=== PATIENT | male | born 1970 | race Caucasian/White ===

== ENCOUNTER → 2025-01-20 | Day surgery (SDC) | payer BC ==
[~2025-01-20] MED LIST: AMLODIPINE BESYL5 MG PO; GLUCAGON FOR INJ 1 MG VIAL ONE; LIPITOR10 MG PO; METOCLOPRAMIDE HCL 10 MG/2ML VIAL ONE; MICARDIS40 MG PO; MIDAZOLAM HCL 2 MG/2 ML VIAL ONE; PROPOFOL IV EMULSION 10 MG/ML 20 ML VIAL ONE; PROPOFOL IV EMULSION 50 ML IV ONE
[2025-01-20] MEDS: LACTATED RINGER'S 1,000 ML ONE (11:45)
[2025-01-20 13:22] VITALS: TEMP 98.8
[2025-01-20 13:50] VITALS: BP 127/83; PULSE 80; RESP 16; O2SAT 100
== END | disposition home or self-care (01) ==
LOC: OR 11:21
PROVIDERS: ATTEND Internal Medicine Gastroenterology
DX: Z12.11 Encounter for screening for malignant neoplasm of colon (principal); K62.1 Rectal polyp; K57.30 Diverticulosis of large intestine without perforation or abscess without bleeding; K64.8 Other hemorrhoids; I10 Essential (primary) hypertension; E78.5 Hyperlipidemia, unspecified; N28.1 Cyst of kidney, acquired; Z88.0 Allergy status to penicillin; Z88.2 Allergy status to sulfonamides; Z01.810 Encounter for preprocedural cardiovascular examination; Z79.899 Other long term (current) drug therapy; Z68.26 Body mass index [BMI] 26.0-26.9, adult; Z71.3 Dietary counseling and surveillance
CPT/HCPCS: 45385; 93005; J1610; J2250; J2704 ×2; J2765; J7121; 45378